=== PATIENT | female | born 1965 | race Caucasian/White ===

== ENCOUNTER 2016-10-21 15:39 | Emergency (ER) | payer MEDICAID ==
--- NOTE | 2016-10-21 15:45 | EDPHY ---
H & P HPI/ROS: CHIEF COMPLAINT: Stroke alert HISTORY OF PRESENT ILLNESS: This patient is a 51 year old female with history of alcoholism arriving via EMS for evaluation of a possible stroke due to slurred speech and aphasia onset shortly prior to arrival. Per EMS report, she was initially shaky on scene with slurred speech and word-finding difficulty, taking considerable effort to say one or two words. She states her speech felt wrong before transport, but is better now. She remembers "a lot of people showed up at her house". She endorses drinking alcohol today, and states that her last drink was two hours ago. She is alert and oriented. She had an argument with her ex- earlier today which reportedly prompted her drinking. Her son's teacher called EMS following a phone conversation with the patient this afternoon. The patient does not want to discuss alcohol use at this time, and states she does not want to be in the emergency department. Her speech difficulties seem resolved currently. She denies numbness or weakness, no facial droop or other associated symptoms. REVIEW OF SYSTEMS: A 10 point review of systems was performed and is negative with the exception of the elements mentioned in the history of present illness. Past medical history: Alcohol abuse, hypothyroid, hypertension Medications: Pantoprazole, naltrexone, metoprolol, levothyroxine, paroxetine Past surgical history: Noncontributory Family history: Noncontributory Social history: Friend at bedside. Lives in [place]. 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 . General Appearance: Alert, no acute distress. Triage BP 162/112, 157/94 at triage. HR 105. Head: Normocephalic, atraumatic. Eyes: Pupils equal and round, mild bilateral conjunctival injection, no discharge. ENT, Mouth: Mucous membranes are moist, no oropharyngeal erythema or edema. Neck: No lymphadenopathy, supple. Respiratory: Lungs are clear to auscultation; no wheezes, rales, or rhonchi. Cardiovascular: Tachycardic; no murmur, rub, or gallop. Gastrointestinal: Abdomen is soft and non tender, no masses or organomegaly, bowel sounds normal. Skin: Warm and dry, no rashes, normal color. Back: Nontender to palpation over the thoracolumbar spine. Extremities: No lower extremity edema, no calf tenderness or swelling. Neurological: Alert and oriented. Moving all four extremities easily and equally. Cranial nerves II through XII are examined and are intact (visual acuity not tested). Strength is 5 over 5 bilaterally with testing of all major motor groups. Sensation is intact to light touch over all 4 extremities. Psychiatric: Occasional tears, withdrawn. No agitation. - Medical/Surgical History Hx Asthma: No Hx Chronic Respiratory Disease: No Hx Diabetes: No Hx Cardiac Disease: No Hx Renal Disease: No Hx Cirrhosis: No Hx Alcoholism: Yes Hx HIV/AIDS: No Hx Splenectomy or Spleen Trauma: No Other PMH: HYPOTHYROID. ALCOHOL ABUSE,. ANXIETY - Social History Smoking Status: Never smoked Constitutional: Initial Vital Signs Temperature (C) 36.2 C 10/21/16 15:58 Heart Rate 105 H 10/21/16 15:58 Respiratory Rate 18 10/21/16 15:58 Blood Pressure 162/112 H 10/21/16 15:58 O2 Sat (%) 93 10/21/16 15:58 O2 Delivery Mode Room Air Allergies/Adverse Reactions: No Known Allergies Allergy (Verified 10/21/16 15:58) Home Medications: Medication Instructions Recorded LORazepam [Ativan (*)] 1 mg PO Q6-8PRN PRN #30 tab 04/13/15 PARoxetine HCL [Paxil 10mg (*)] 10 mg PO DAILY #30 tab 04/13/15 Medical Decision Making - Diagnostics Imaging: Discussed imaging studies w/ call center professional Radiologist ED Course/Re-evaluation: 15:40 Met EMS at bedside. Plan for CT scan of head. 15:44 Downgrade stroke alert. It is my impression that this patient is intoxicated, hence her slurred speech earlier. 15:[address] Bucio, radiologist. CT head normal. She is not ill in general and has been fully oriented in ED. I do not suspect infection. Normal blood sugar and electrolytes. EtOH 295. Long discussion with patient. Patient feels safe. Ex- living in basement , unemployed. Trying to set boundaries with him. 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 Has three children, one with special needs. Expresses interest in recovery from alcohol abuse but not interested in any of the options that are available. Prefers options other than AA to pursue. Reiterates that she is safe at home. Children are safe. Denies suicidal or homicidal ideation. Wants to go home, friend is here to drive her. Plan to discharge home in stable condition. We discussed her elevated BP readings. Follow up and return precautions discussed. Differential Diagnosis: I considered a ddx of altered mental status that includes but is not limited to alcohol intoxication, electrolyte disturbance, blood sugar abnormality, infection, CVA. - Data Points Laboratory Results: Laboratory Results 10/21/16 15:45 10/21/16 15:45 Departure - Departure Disposition: Home, Routine, Self-Care Clinical Impression: Alcohol intoxication Qualifiers: Complication of substance-induced condition: uncomplicated Qualified Code(s): F10.920 - Alcohol use, unspecified with intoxication, uncomplicated Hypertension Qualifiers: Hypertension type: essential hypertension Qualified Code(s): I10 - Essential ( primary) hypertension Condition: Good Instructions: Alcohol Intoxication (ED), Hypertension (ED) Additional Instructions: 1. Please follow up with your primary care provider next week. 2. Return to the Emergency Department for severe headache, new weakness or numbness in your arms or legs, chest pains, shortness of breath, confusion, or other worsening of condition or concerns. 3. Take your prescription medications as directed and follow up with your primary care provider for continued management of your medication regimen. 4. Please strongly consider following up with AA for continued assistance with your recovery. Referrals: AA Hotline [Outside] - As per Instructions Jacqueline Campbell PA [Primary Care Provider] - As per Instructions Report Scribed for: Maria Del Carmen De Los Santos Report Scribed by: Janis Thapa Date of Report: 10/21/16 Time of Report: 15:59
[2016-10-21 15:56] LABS: % IMMATURE GRANULYOCYTES 0.1 % (0.0-1.1); ABSOLUTE IMMATURE GRANULOCYTES 0.01 10^3/uL (0.00-0.10); ADD DIFF? NO; ADD MORPH? NO; ADD SCAN? NO; ATYPICAL LYMPHOCYTE FLAG 0 (0-99); FRAGMENT RBC FLAG 0 (0-99); HEMATOCRIT 41.7 % (38.0-47.0); HEMOGLOBIN 14.7 g/dL (12.6-16.3); LEFT SHIFT FLG 0 (0-99); LIPEMIA HEMOLYSIS FLAG 90 (0-99); MEAN CELL HEMOGLOBIN 35.9 pg (27.9-34.1); MEAN CELL HEMOGLOBIN CONCENTR. 35.3 g/dL (32.4-36.7); MEAN PLATELET VOLUME 8.9 fL (8.7-11.7); PLATELET CLUMPS FLAG 0 (0-99); PLATELET COUNT 185 10^3/uL (150-400); RED BLOOD CELL COUNT 4.09 10^6/uL (4.18-5.33); RED CELL DISTRIBUTION WIDTH 13.2 % (11.5-15.2)
[2016-10-21 16:00] VITALS: RESP 18; TEMP 97.2
[2016-10-21 16:10] LABS: ANION GAP 21 mEq/L (8-16); CALCIUM 9.5 mg/dL (8.5-10.4); CARBON DIOXIDE 21 mEq/l (22-31); CHLORIDE 103 mEq/L (97-110); CREATININE 0.8 mg/dL (0.6-1.0); ETHANOL SERUM 295 mg/dL (0-10); GLOMERULAR FILTRATION RATE > 60; GLUCOSE 104 mg/dL (70-100); POTASSIUM 3.8 mEq/L (3.5-5.2); SODIUM 145 mEq/L (134-144)
[2016-10-21 16:52] VITALS: BP 157/94; PULSE 98; O2SAT 98
== END 2016-10-21 17:21 | disposition home or self-care (01) ==
LOC: EDUNIT#
DX: F10.920 Alcohol use, unspecified with intoxication, uncomplicated (principal); I10 Essential (primary) hypertension
CPT/HCPCS: 82947-QW; G0480